=== PATIENT | female | born 1940 | race Caucasian/White ===

== ENCOUNTER 2024-07-17 10:58 | Emergency (ER) | payer MEDICARE, SELFPAY ==
[2024-07-17 10:59] VITALS: BP 138/65; PULSE 66; RESP 18; TEMP 36.3; O2SAT 98
--- NOTE | 2024-07-17 11:42 | DI.RAD_ITS ---
Exam(s) XR WRIST LT COMP NAVICULAR EXAM: XR WRIST LT COMP NAVICULAR CLINICAL HISTORY: FOOSH, pain distal radius. TECHNIQUE: 2D digital imaging was performed. Three views. COMPARISON: No exams were available for comparison FINDINGS: BONES: No acute fracture is present. No bony destructive lesion is seen. 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 There is dorsal tilt of the lunate . The scapholunate joint is not well profiled. Degenerative change also seen at the 1st carpal meta carpal joint. There is smoothly marginated bony densities seen at the posterior aspect of the proxim al carpal row which appear chronic. SOFT TISSUE: Marked soft tissue swelling. IMPRESSION: No acute fracture is visible. 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 DATA REPOSITORY: RADIATION DOSE DELIVERED:
--- NOTE | 2024-07-17 12:01 | ED.GENADUL_ITS ---
Discharge Plan Disposition Patient Disposition: Home Condition: Stable Discharge Details Clinical Impression: Sprain of left wrist Primary Care Provider: Joyce,Local ED Provider: Will Chapin Home Meds and New Rx's Prescriptions: Continued atorvastatin 10 mg tablet 10 mg PO DAILY sertraline [Zoloft] 50 mg tablet 50 mg PO DAILY losartan 25 mg tablet 25 mg PO DAILY Discharge Instructions Instructions: Wrist Sprain ED Additional Instructions: Please take acetaminophen (tylenol) - 650mg every 6 hours by mouth as needed for pain. Please keep wrist splint intact over the next 2 weeks. Please follow-up with your primary care physician. Should pain persist, additional outpatient diagnostic testing may be necessary. Return to the ER for any worsening or new concerning symptoms. HPI General Date/Time Provider Initiated Documentation: 07/17/24 11:08 . Limitations to Documentation: no limitations . Information obtained by: patient and family . HPI Narrative: 84-year-old female presents with left wrist pain after mechanical trip and fall 2 days ago landing on outstretched left hand. Pain is moderate and worse with movement of her wrist. Pain localized to radial wrist with associated swelling. No numbness or tingling. No other injury sustained during the fall. Related Data Home Medications ?Medication ?Instructions ?Recorded ?Confirmed atorvastatin 10 mg tablet 10 mg PO DAILY 07/17/24 07/17/24 losartan 25 mg tablet 25 mg PO DAILY 07/17/24 07/17/24 sertraline 50 mg tablet (Zoloft) 50 mg PO DAILY 07/17/24 07/17/24 General Stated Complaint: Orthopedic REBECCA: 4 Review of Systems Musculoskeletal Musculoskeletal: Reports as per HPI Neurologic Neurologic: Reports as per HPI Exam Extrem Left upper extremity: elbow/forearm Details: normal to inspection, wrist Details: abnormal to inspection, tenderness Location: of the distal radius, swelling Location: of the dorsal wrist (radial), abnormal ROM Details: pain with active ROM Details: with flexion, other (distal sensation and motor intact) and normal vascular exam; no ecchymosis and hand Details: normal to inspection Course Vital Signs Vital signs: Vital Signs Temperature 36.3 C L 07/17/24 10:59 Pulse 66 07/17/24 10:59 Respiratory Rate 18 07/17/24 10:59 Blood Pressure 138/65 07/17/24 10:59 Pulse Oximetry 98 07/17/24 10:59 Temperature 36.3 C L 07/17/24 10:59 Temperature Source Oral 07/17/24 10:59 Pulse 66 07/17/24 10:59 Respiratory Rate 18 07/17/24 10:59 Respiratory Effort Normal, Non-Labored 07/17/24 11:04 Blood Pressure 138/65 07/17/24 10:59 Blood Pressure Position Sitting 07/17/24 10:59 Pulse Oximetry 98 07/17/24 10:59 Oxygen Delivery Method Room Air 07/17/24 10:59 Oxygen Flow Rate 0 07/17/24 10:59 Pain Level 10 07/17/24 11:16 Medical Decision Making 84-year-old female presents 2 days after FOOSH with left wrist pain and swelling. She has tenderness of her distal radius. Patient neurovascular tact distally. Patient was offered analgesia and declined. Ice pack was applied. X-ray of the left wrist was interpreted by radiology: No acute fracture is visible. 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 Suspect wrist sprain. Patient was immobilized with volar wrist splint. She was encouraged to follow- up with primary care physician. Usual customary discharge instructions were reviewed. Quality:SDOH Health Related Social Needs: No Data to Display [facility] All Active Problems Sprain of left wrist (Acute) Social History Smoking/Tobacco Use Status: Never Smoking risk assessment performed?: Yes Alcohol Intake: current Alcohol Intake frequency: 0-2 drinks per day Drug use: Never Substance use type: does not use PAWSS Have you Been Recently Intoxicated or Drunk Within the Last 30 days?: No Have you Ever Experienced Previous Episodes of Alcohol Withdrawal?: No Have you ever Experienced Withdrawal Seizures?: No Have you ever Experienced Delirium Tremens(DT)s?: No Have you ever undergone Alcohol Rehabilitation Treatment (i.e, inpt ot outpatient treatment programs)?: No Have you ever Experienced Blackouts?: No Have you ever Combined Alcohol with other Downers within the last 90 days?: No Have you ever Combined Alcohol with any other Substance of Abuse during the last 90 days?: No Positive Blood Alcohol level on Presentation? [PCS.BAL]: No Evidence of Increased Autonomic Activity (i.e. HR>120, tremor, sweating, agitation, nausea)?: No Result: 0
== END 2024-07-17 12:18 | disposition home or self-care (01) ==
LOC: ER 12:12
PROVIDERS: Emergency Provider Student in an Organized Health Care Education/Training Program
DX: S63.502A Unspecified sprain of left wrist, initial encounter (principal); W01.0XXA Fall on same level from slipping, tripping and stumbling without subsequent striking against object, initial encounter
CPT/HCPCS: 99283; 73110